=== PATIENT | male | born 1930 | race Two or more races ===

== ENCOUNTER 2018-09-02 13:37 | Emergency (ER) | payer BC, MEDICARE ==
[~2018-09-02] VITALS: Ht 165.1 cm; Wt 90.7 kg
[~2018-09-02 13:37] MED LIST: ACTOS30 MG ORAL; ASPIR-LOW81 MG ORAL; ATORVASTATIN; ATORVASTATIN CA10 MG ORAL; CASCARA SAGRAD450 MG PO; CELERY SEED OI500 ML MC; CINNAMON500 MG PO; CLONIDINE HCL0.2 MG PO; CLOPIDOGREL; CLOPIDOGREL75 MG PO; COZAAR25 MG ORAL; COZAAR50 MG PO; CRANBERRY500 M2 PO; FISH OIL500 MG PO; FLOMAX0.4 MG ORAL; GABAPENTIN; GABAPENTIN600 MG ORAL; GARLIC1 EACH PO; GLUCOPHAGE1000 MG PO; GLUCOVANCE 2.51 EACH PO; GLYBURIDE-METF1 EACH PO; JANUVIA; JANUVIA50 MG ORAL; LASIX; LASIX20 M1 PO; LOSARTAN; METFORMIN; METFORMIN HCL1000 M1 ORAL; NAPROXEN375 M2 PO; NATURAL LUTEIN20 MG PO; NEURONTIN100 MG ORAL; PAPAYA ENZYME1 EAC1 PO; SAW PALMETTO80 M1 PO; TAMSULOSIN; VITAMIN D400 INTLU PO
[2018-09-02] MEDS ORDERED: CLINDAMYCIN HC300 MG ORAL (14:41)
[2018-09-02] MEDS ORDERED: ACETAMINOPHEN-1 EAC1 ORAL (14:41)
[2018-09-02 14:44] VITALS: BP 150/87
--- NOTE | 2018-09-02 14:44 | NUR ---
ED Nurse Note: Pt was seen due to left second toe swelling. Pt cleared by health care provider for discharge. DC instructions/prescription was given and explained to pt and verbalized understanding of teachings. All bio medical technician such as ID band removed. Pt is AAO x4, ambulatory and left with all personal belongings. Pt left with his family member.
[2018-09-02] MEDS ORDERED: Clindamycin 150mg cap ORAL ONE (14:45)
--- NOTE | 2018-09-02 16:23 | Emergency Room Report ---
History of Present Illness General Chief Complaint: Lower Extremity Injury Source: Patient Present Illness HPI Patient is an 88 old male with a history of diabetes presenting for left toe swelling. Has began 3 days prior without known cause. He denies any known injury. He did notice a small cuts on the toe but is unsure how it happened. Pain is minor described as a 5 out of 10 dull ache. Does not radiate. He does admit to some numbness but states that this is a chronic issue. He denies any other symptoms including fever, chills, rash, calf pain, SOB, night sweats. he denies Hx of gout Allergies: Coded Allergies: No Known Allergies (Unverified , 10/21/12) Patient History Past Medical History: see triage record Pertinent Family History: none Reviewed Nursing Documentation: PMH: Agreed; PSxH: Agreed Nursing Documentation-PMH Past Medical History: No History, Except For Hx Cardiac Problems: Yes Hx Hypertension: Yes Hx Pacemaker: Yes Hx Diabetes: Yes Hx Cancer: No Hx Gastrointestinal Problems: Yes Hx Neurological Problems: Yes Hx Dizziness: Yes Hx Syncope: Yes Hx Weakness: Yes Hx Fatigue: Yes Review of Systems All Other Systems: negative except mentioned in HPI Physical Exam Vital Signs Date Time Temp Pulse Resp B/P (MAP) Pulse Ox O2 Delivery O2 Flow Rate FiO2 09/02/18 13:50 98.2 79 17 162/90 96 Room Air Sp02 EP Interpretation: reviewed, normal General Appearance: no apparent distress, alert, GCS 15, non-toxic Musculoskeletal: back normal, gait/station normal, normal range of motion, no calf tenderness, swelling - L 1st and 2nd digits, tender - L 1st and second digits Neurologic: alert, oriented x3, responsive, motor strength/tone normal, sensory intact, speech normal Skin: normal color, no rash, warm/dry, abrasions - dorsal aspect of L 1st toe Medical Decision Making PA Attestation Dr. Marino is my supervising physician. Patient management was discussed with my supervising physician Diagnostic Impression: Primary Impression: Cellulitis Qualified Codes: L03.039 - Cellulitis of unspecified toe ER Course Patient is an 88 old male with a history of diabetes presenting for left toe swelling. Differential diagnosis considered but not limited to: Cellulitis, gout, abscess , gangrene, fracture, sprain, among others Physical exam: Afebrile. No apparent distress There is a less than 1 cm abrasion to the left first toe, dorsal aspect. There is mild tenderness to palpation with swelling. No erythema. No discharge. Sensation is intact. X-ray of the left foot unremarkable for acute findings Patient is given prescription for antibiotics and pain medication. He is told he needs to follow-up with primary doctor within the next 2 days. He and his son agree. ER precautions given including if the patient develops fever, redness, swelling, or increased pain Other X-Ray Diagnostic Results Other X-Ray Diagnostic Results : # of Views/Limited Vs Complete: 3 View, Complete Indication: Pain EP Interpretation: Yes PA Xray: Interpretation reviewed, by supervising MD, and agrees with findings. Interpretation: no dislocation, no fractures, other - swelling Impression: Other - no bony changes Last Vital Signs Date Time Temp Pulse Resp B/P (MAP) Pulse Ox O2 Delivery O2 Flow Rate FiO2 09/02/18 14:44 98.0 86 18 150/87 98 Room Air Status: improved Disposition: HOME, SELF-CARE Condition: Improved Scripts Acetaminophen With Codeine (T#3) (TYLENOL #3 TAB*) Y Tab 1 TAB ORAL Q6HR PRN for For Pain, #10 TAB Prov: TAMI BHATIA P.A. 09/02/18 Clindamycin Hcl (CLINDAMYCIN HCL) 300 Mg Capsule 300 MG ORAL TID, #21 CAP Prov: TAMI BHATIA P.A. 09/02/18 Referrals: Tomás Eason MD (PCP) Patient Instructions: Cellulitis Additional Instructions: Please follow-up with your primary doctor within 2 days. You are at a higher risk for complications due to diabetes. Please return to the emergency department as soon as possible if you notice redness, increased swelling, increased pain, fever, chills, or any other symptoms. Please take the medications as prescribed TMAI BHATIA.A. Sep 02, 2018 16:23
--- NOTE | 2018-09-03 11:35 | Diagnostic Imaging Report ---
Indication: Foot pain Technique: 3 views left foot Comparison: none Findings: No acute fractures. No dislocations. There is degenerative narrowing of the second proximal interphalangeal joint. No definite osseous erosions. There are vascular calcifications. There are small plantar and calcaneal spurs. There is hammertoe deformity of the second through fifth digits. Impression: No definite acute process.
== END 2018-09-02 14:44 | disposition home or self-care (01) ==
LOC: EMR 14:24
DX: L03.032 Cellulitis of left toe (principal); S90.412A Abrasion, left great toe, initial encounter; X58.XXXA Exposure to other specified factors, initial encounter; Y92.9 Unspecified place or not applicable; I10 Essential (primary) hypertension; E11.9 Type 2 diabetes mellitus without complications; Z95.0 Presence of cardiac pacemaker
CPT/HCPCS: 82962; 99283

== ENCOUNTER 2019-02-21 15:24 | Emergency (ER) | payer BC, MEDICARE ==
[~2019-02-21] VITALS: Ht 162.6 cm; Wt 72.6 kg
[~2019-02-21 15:24] MED LIST changes: +ACETAMINOPHEN-1 EAC1 ORAL; +CLINDAMYCIN HC300 MG ORAL
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
--- NOTE | 2019-02-21 15:40 | NUR ---
ED Nurse Note: Pt BIBA from home due to "not being like himself normally, does not respond to questions appropriately, also R sided facial drooping and R sided limping x 1 hour prior to arrival". Upon arrival, pt follows commands but not answering the questions, generalized weakness noted. Vital signs stable at this time. Daughter at bedside. Will cont to monitor.
[2019-02-21] MEDS ORDERED: Isovue-370 150ml vial INJ PRN ×2 (15:45)
--- NOTE | 2019-02-21 15:52 | Emergency Room Report ---
History of Present Illness General Chief Complaint: Altered Mental Status Source: Patient, EMS Present Illness HPI 88-year-old male past history of atrial fibrillation, stents, hypertension, hyperlipidemia, diabetes, on anticoagulation, pacemaker presents with a lapse in consciousness, patient 30 mmins prior to arrival was noted to have some facial droop, left arm weakness left lower extremity weakness that has since resolved, patient can't remember exactly what happened, he denies any cp sob. He states he is at baseline. Allergies: Coded Allergies: No Known Allergies (Unverified , 10/21/12) Patient History Past Medical History: see triage record Reviewed Nursing Documentation: PMH: Agreed; PSxH: Agreed Nursing Documentation-PMH Past Medical History: No History, Except For Hx Cardiac Problems: Yes Hx Hypertension: Yes Hx Pacemaker: Yes Hx Diabetes: Yes Hx Cancer: No Hx Gastrointestinal Problems: Yes Hx Neurological Problems: Yes Hx Dizziness: Yes Hx Syncope: Yes Hx Weakness: Yes Hx Fatigue: Yes Review of Systems All Other Systems: negative except mentioned in HPI Physical Exam Vital Signs Date Time Temp Pulse Resp B/P (MAP) Pulse Ox O2 Delivery O2 Flow Rate FiO2 02/21/19 15:30 98.1 60 19 131/68 (89) 94 Room Air Sp02 EP Interpretation: reviewed, normal General Appearance: well appearing, no apparent distress, alert Head: normocephalic, atraumatic Eyes: bilateral eye PERRL, bilateral eye EOMI ENT: uvula midline, moist mucus membranes Neck: supple, thyroid normal, supple/symm/no masses Respiratory: lungs clear, no respiratory distress, no retraction, no accessory muscle use Cardiovascular #1: normal peripheral pulses, regular rate, rhythm, no edema, no gallop, no murmur Gastrointestinal: non tender, soft, no guarding, no rebound Musculoskeletal: normal inspection Neurologic: alert, oriented x3 Psychiatric: mood/affect normal Skin: no rash, warm/dry Procedures Critical Care Time Critical Care Time Given the critical condition in which the patient arrived, the patient was immediately assessed by myself and the nurse, and cardiac monitoring initiated due to the potential for rapid decompensation of the patient's clinical condition. During the course of the patient's stay, I spent a considerable amount of time at the bedside performing serial re-evaluations of the patient's hemodynamic and clinical status because of the recognized potential threat to life or limb in this condition. I then had a chance to review not only all of the available current laboratory and radiographic studies obtained today, but I also reviewed old records available to me at the time. Additionally, any ancillary information available including photograph developer records were reviewed. Sequential vital signs were obtained. Critical Care time of 42 minutes was performed exclusive of billable procedures. Medical Decision Making Diagnostic Impression: Primary Impression: TIA (transient ischemic attack) Additional Impression: Altered mental status Qualified Codes: R41.82 - Altered mental status, unspecified ER Course 88-year-old male presents with altered mental status treatments prior to arrival , patient is at baseline, no acute neurologic deficits noted, concern for possible TIA versus sepsis versus UTI versus CVA Patient is on anticoagulation Will transfer patient to [facility] accepting physician is DR MILLER [phone]. Patient accepted at 5:50 PM Reevaluation 6:37 PM, patient remained stable, counseling provided to family requesting paperwork for the type of pacemaker he has in order to do an MRI at the outside hospital Reevaluation at 8:03 PM, patient was about to leave AMA, counseled patient to stay states he will for a stroke work-up Currently awaiting CT results Laboratory Tests Test 02/21/19 15:43 02/21/19 16:06 02/21/19 16:30 White Blood Count 9.4 K/UL (4.8-10.8) Red Blood Count 4.06 M/UL (4.70-6.10) L Hemoglobin 12.7 G/DL (14.2-18.0) L Hematocrit 36.5 % (42.0-52.0) L Mean Corpuscular Volume 90 FL (80-99) Mean Corpuscular Hemoglobin 31.2 PG (27.0-31.0) H Mean Corpuscular Hemoglobin Concent 34.8 G/DL (32.0-36.0) Red Cell Distribution Width 11.6 % (11.6-14.8) Platelet Count 186 K/UL (150-450) Mean Platelet Volume 7.2 FL (6.5-10.1) Neutrophils (%) (Auto) 61.2 % (45.0-75.0) Lymphocytes (%) (Auto) 26.8 % (20.0-45.0) Monocytes (%) (Auto) 9.3 % (1.0-10.0) Eosinophils (%) (Auto) 1.3 % (0.0-3.0) Basophils (%) (Auto) 1.3 % (0.0-2.0) Prothrombin Time 14.9 SEC (9.30-11.50) H Prothrombin Time INR 1.4 (0.9-1.1) H PTT 36 SEC (23-33) H Sodium Level 136 MMOL/L (136-145) Potassium Level 4.0 MMOL/L (3.5-5.1) Chloride Level 103 MMOL/L (98-107) Carbon Dioxide Level 27 MMOL/L (21-32) Anion Gap 6 mmol/L (5-15) Blood Urea Nitrogen 16 mg/dL (7-18) Creatinine 1.2 MG/DL (0.55-1.30) Estimate Glomerular Filtration Rate mL/min (>60) Glucose Level 325 MG/DL (74-106) H Calcium Level 8.8 MG/DL (8.5-10.1) Phosphorus Level 2.9 MG/DL (2.5-4.9) Magnesium Level 1.9 MG/DL (1.8-2.4) Total Bilirubin 0.6 MG/DL (0.2-1.0) Aspartate Amino Transferase (AST) 13 U/L (15-37) L Alanine Aminotransferase (ALT) 10 U/L (12-78) L Alkaline Phosphatase 96 U/L (46-116) Total Creatine Kinase 75 U/L (26-308) Creatine Kinase MB 1.4 NG/ML (0.0-3.6) Creatine Kinase MB Relative Index 1.8 Troponin I 0.020 ng/mL (0.000-0.056) Pro-B-Type Natriuretic Peptide 176 pg/mL (0-125) H Total Protein 6.4 G/DL (6.4-8.2) Albumin 3.2 G/DL (3.4-5.0) L Globulin 3.2 g/dL Albumin/Globulin Ratio 1.0 (1.0-2.7) Lipase 194 U/L (73-393) Lactic Acid Level 1.50 mmol/L (0.4-2.0) Urine Color Pale yellow Urine Appearance Clear Urine pH 7 (4.5-8.0) Urine Specific [place] 1.010 (1.005-1.035) Urine Protein Negative (NEGATIVE) Urine Glucose (UA) 4+ (NEGATIVE) H Urine Ketones Negative (NEGATIVE) Urine Blood Negative (NEGATIVE) Urine Nitrite Negative (NEGATIVE) Urine Bilirubin Negative (NEGATIVE) Urine Urobilinogen 1 MG/DL (0.0-1.0) H Urine Leukocyte Esterase 2+ (NEGATIVE) H Urine RBC 0-2 /HPF (0 - 0) H Urine WBC 10-15 /HPF (0 - 0) H Urine Squamous Epithelial Cells None /LPF (NONE/OCC) Urine Bacteria Occasional /HPF (NONE) EKG Diagnostic Results EKG Time: 15:42 EP Interpretation: NSR, left axis deviation, left bundle branch block, rate 63 , QTc 468, Rate: normal Rhythm: NSR ST Segments: no acute changes Rhythm Strip Diag. Results Rhythm Strip Time: 15:51 EP Interpretation: yes Rate: 60 Rhythm: NSR, no PVC's, no ectopy Chest X-Ray Diagnostic Results Chest X-Ray Diagnostic Results : Chest X-Ray Ordered: Yes # of Views/Limited/Complete: 1 View Indication: Other - AMS EP Interpretation: Yes Interpretation: no consolidation, no effusion, no pneumothorax, no acute cardiopulmonary disease Impression: No acute disease Electronically Signed by: Austyn Sorensen MD CT/MRI/US Diagnostic Results CT/MRI/US Diagnostic Results : Impression Preliminary Findings Only See Final Report For Complete Findings CTA NECK W/WO Contrast: CT Angiogram of the Neck FINDINGS: The aortic arch and proximal great vessels are unremarkable. The bilateral common, internal and external carotid arteries are within normal limits as are the vertebral arteries. Visualized portions of the lung apices are clear. Soft tissues and osseous structures are unremarkable. IMPRESSION: No evidence of dissection or high grade stenosis. Radiologist: Harlan Joseph MD Study ready at 19:01 and initial results transmitted at 19:08 Preliminary Findings Only See Final Report For Complete Findings CTA HEAD W/WO Contrast: No arterial occlusion, high-grade stenosis, aneurysm, or dissection. Radiologist: Guille Nieto MD Study ready at 18:43 and initial results transmitted at 18:52 Last Vital Signs Date Time Temp Pulse Resp B/P (MAP) Pulse Ox O2 Delivery O2 Flow Rate FiO2 02/21/19 15:30 98.1 60 19 131/68 (89) 94 Room Air Disposition: XFER [facility] - [facility] [place] Condition: Stable Austyn Sorensen MD Feb 21, 2019 15:52
[2019-02-21 16:12] LABS: BASOPHILS % (AUTO) 1.3 % (0.0-2.0); EOSINOPHILS % (AUTO) 1.3 % (0.0-3.0); HEMATOCRIT 36.5 % (42.0-52.0); HEMOGLOBIN 12.7 G/DL (14.2-18.0); LYMPHOCYTES % (AUTO) 26.8 % (20.0-45.0); MEAN CORPUSCULAR VOLUME 90 FL (80-99); MONOCYTES % (AUTO) 9.3 % (1.0-10.0); NEUTROPHILS % (AUTO) 61.2 % (45.0-75.0); PLATELET COUNT 186 K/UL (150-450); RED BLOOD COUNT 4.06 M/UL (4.70-6.10); RED CELL DISTRIBUTION WIDTH 11.6 % (11.6-14.8); WHITE BLOOD COUNT 9.4 K/UL (4.8-10.8)
[2019-02-21 16:33] VITALS: BP 132/72
[2019-02-21 16:36] LABS: ANION GAP 6 mmol/L (5-15); BLOOD UREA NITROGEN 16 mg/dL (7-18); CALCIUM 8.8 MG/DL (8.5-10.1); CARBON DIOXIDE 27 MMOL/L (21-32); CHLORIDE 103 MMOL/L (98-107); CREATININE 1.2 MG/DL (0.55-1.30); SODIUM 136 MMOL/L (136-145)
--- NOTE | 2019-02-21 16:40 | Diagnostic Imaging Report ---
Indication: Shortness of breath Technique: One view of the chest Comparison: 06/23/2016 Findings: Less optimal inspiration currently. The heart size is normal. Lungs and pleural spaces remain clear. There is a left chest pacemaker again noted. No significant change Impression: No acute process
[2019-02-21 16:47] LABS: INR 1.4 (0.9-1.1)
[2019-02-21 16:48] LABS: APPEARANCE,URINE CLEAR; BILIRUBIN, URINE NEGATIVE (NEGATIVE); COLOR,URINE PALE YELLOW; GLUCOSE, URINE (UA) 4+ (NEGATIVE); KETONES,URINE NEGATIVE (NEGATIVE); LEUKOCYTE ESTERASE ,URINE 2+ (NEGATIVE); NITRITE,URINE NEGATIVE (NEGATIVE); PH,URINE 7 (4.5-8.0); PROTEIN,URINE NEGATIVE (NEGATIVE); UROBILINOGEN,URINE 1 MG/DL (0.0-1.0)
[2019-02-21 16:52] LABS: ALANINE AMINOTRANSFERASE 10 U/L (12-78); ALBUMIN 3.2 G/DL (3.4-5.0); ALKALINE PHOSPHATASE 96 U/L (46-116); ASPARTATE AMINO TRANSFERASE 13 U/L (15-37); BILIRUBIN,TOTAL 0.6 MG/DL (0.2-1.0); CKMB 1.4 NG/ML (0.0-3.6); CREATINE KINASE 75 U/L (26-308); PHOSPHORUS 2.9 MG/DL (2.5-4.9)
[2019-02-21] MEDS ORDERED: VITAMIN D400 INTLU ORAL (16:53)
[2019-02-21] MEDS ORDERED: XARELTO20 MG ORAL (16:53)
--- NOTE | 2019-02-21 17:30 | NUR ---
ED Nurse Note: Pt is awake and alert, cooperative at this time but still does not answer questions. No sign of acute distress.
[2019-02-21 18:29] VITALS: BP 143/68
[2019-02-21] MEDS ORDERED: Nitroglycerin Subl 0.4mg tab SL PRN (18:30)
[2019-02-21] MEDS ORDERED: Miralax 17gm pkt ORAL PRN (18:30)
[2019-02-21] MEDS ORDERED: Albuterol/Ipratropium 3ml neb HHN PRN (18:30)
[2019-02-21] MEDS ORDERED: Promethazine/Codeine 5ml UD ORAL PRN (18:30)
--- NOTE | 2019-02-21 18:54 | Diagnostic Imaging Report ---
Indication: A 8-year-old male with history of atrial fibrillation and stents, now presenting with lapse in consciousness, facial droop, left arm weakness, left lower extremity weakness Technique: Precontrast spiral acquisitions obtained through the brain. IV administration nonionic contrast. Arterial phase spiral acquisitions obtained through the brain Multiplanar and 3-D reconstructions were generated. Total dose length product 2470 mGycm. CTDIvol(s) 16, 16, 181, 57 mGy. Radiation dose was minimized using automated exposure control Comparison: Precontrast study compared to head CT of 01/09/2013. No comparison angiographic images Findings: Precontrast images demonstrate age-related enlargement of the ventricles and extra axial CSF spaces. There is mild periventricular deep white matter low-attenuation consistent with chronic microvascular ischemic change. Normal baker-white differentiation. No acute intracranial hemorrhage or edema, mass effect, nor midline shift. Angiographic images demonstrate dominant right, smaller caliber left vertebral artery demonstrated, both without significant focal stenosis. Patent PICAs. Patent nonstenotic basilar artery. Small caliber of the patent anterior inferior cerebellar arteries. Patent bilateral superior cerebellar arteries. Small caliber left P1 segment with a large posterior communicating artery. Patent nonstenotic P2 and proximal branches. Absent P1 segment with origin of the right posterior cerebral artery off of the distal internal carotid artery, patent and nonstenotic. Atherosclerotic calcified plaquing results in borderline narrowing of the proximal right carotid siphon, probably not significant. The remainder of the distal internal carotid artery is patent without significant stenosis. Patent M1 segment and proximal branches. There is absence of the A1 segment. Patent and nonstenotic distal right internal carotid artery. Patent right A1 segment which supplies both anterior cerebral arteries. Patent nonstenotic M1 segment and proximal branches. Unremarkable veins and venous sinuses. No evidence of aneurysm or vascular malformation. Impression: No evidence of significant intracranial cerebrovascular insufficiency [place] anatomy as described Age-related cerebral volume loss and mild periventricular deep white matter chronic ischemic changes. No acute intracranial bleed or mass effect This agrees with the preliminary interpretation provided overnight by [employer] telerad[facility] service. The CT scanner at [facility] is accredited by the [employer] and the scans are performed using protocols designed to limit radiation exposure to as low as reasonably achievable to attain images of sufficient resolution adequate for diagnostic evaluation.
--- NOTE | 2019-02-21 19:02 | NUR ---
ED Nurse Note: Receiving RN at [facility] is not ready to take report at this time, will call back in 15 mins.
--- NOTE | 2019-02-21 19:09 | Diagnostic Imaging Report ---
Indication: Altered level of consciousness, left arm weakness, left lower extremity weakness, facial droop Technique: IV administration nonionic contrast. Arterial phase spiral acquisitions obtained through the neck Multiplanar and 3-D reconstructions were generated. Total dose length product 2470 mGycm. CTDIvol(s) 16, 16, 181, 57 mGy. Radiation dose was minimized using automated exposure control Comparison: none Findings: Unremarkable aortic arch. There is common origin of the right brachiocephalic and left common carotid arteries-normal anatomic variant. Right brachiocephalic artery is patent, nonstenotic. There is slight narrowing of the common carotid origin which is probably due to kinking from tortuosity. There is as described plaquing at the aortic bifurcation, but no significant focal narrowing demonstrated. The distal internal carotid artery is quite tortuous. There is suggestion of an area of nonspecific diffuse stenosis in the proximal carotid siphon.. Calcified atherosclerotic plaque occludes accurate estimate of degree of stenosis but probably less than 50%. Patent proximal ophthalmic artery. Patent and nonstenotic right proximal subclavian artery. Patent nonstenotic right vertebral artery. The right vertebral artery is dominant. There is separate origin of the left vertebral artery off of the aortic arch. It is diffusely small in caliber without definite significant focal stenosis Patent and nonstenotic left common carotid artery. There is calcified athetotic plaquing of the carotid bifurcation but no significant focal stenosis. Distal internal carotid artery is patent and nonstenotic. There is evidence of prior bilateral cataract surgery. No cervical mass or adenopathy demonstrated. The upper aerodigestive tract is unremarkable. The included upper lungs are clear. The included upper mediastinum is unremarkable. There is a pacemaker. Impression: No evidence of significant extracranial cerebrovascular insufficiency. Findings as noted This agrees with the preliminary interpretation provided overnight by [employer] telerad[facility] service. The CT scanner at [facility] is accredited by the [employer] and the scans are performed using protocols designed to limit radiation exposure to as low as reasonably achievable to attain images of sufficient resolution adequate for diagnostic evaluation.
--- NOTE | 2019-02-21 19:38 | NUR ---
ED Nurse Note: Report called in to Telma MCCONNELL at [facility]. Patient awaiting transport with daughter at his bed side.
--- NOTE | 2019-02-21 20:03 | NUR ---
ED Nurse Note: Patient expressed want to be discharged, ERMD informed and at bedside consulting with patient.
[2019-02-21] MEDS ORDERED: NovoLOG Insulin Flexpen SUBQ SCH (21:00)
[2019-02-21] MEDS ORDERED: Heparin 5000 units/ml inj SUBQ SCH (21:00)
--- NOTE | 2019-02-21 21:00 | NUR ---
ED Nurse Note: Patient able to void with assistance at bedside.
[2019-02-21 21:56] VITALS: BP 143/68
--- NOTE | 2019-02-21 21:56 | NUR ---
ED Nurse Note: Patient ready for transfer to [facility]. Report given to ALS transport. Vital signs stable. Patient will be accompanied by his daughter. Report called into Telma MCCONNELL prior to pharmacy picking tech. Patient awake, alert and oriented x 4.
[2019-02-22] MEDS ORDERED: Aspirin EC 81mg tab ORAL SCH (09:00)
[2019-02-22] MEDS ORDERED: Losartan 50mg tab ORAL SCH (09:00)
[2019-02-22] MEDS ORDERED: Tamsulosin 0.4mg cap ORAL SCH (09:00)
[2019-02-22] MEDS ORDERED: cloNIDine 0.2mg Tab ORAL SCH (09:00)
--- NOTE | 2019-02-24 13:09 | Cardiology Report ---
APPROVED REPORT EKG Measurement Heart [id number] IL [id number] Sinus rhythm with 1st degree AV block Left axis deviation Left bundle branch block Abnormal ECG
== END 2019-02-21 22:00 | disposition short-term general hospital (02) ==
LOC: EDBD 15:24 → EMR 16:25
DX: G45.9 Transient cerebral ischemic attack, unspecified (principal); I10 Essential (primary) hypertension; E11.9 Type 2 diabetes mellitus without complications; Z95.0 Presence of cardiac pacemaker; I48.91 Unspecified atrial fibrillation; Z95.5 Presence of coronary angioplasty implant and graft; E78.5 Hyperlipidemia, unspecified; I44.7 Left bundle-branch block, unspecified; R06.02 Shortness of breath
CPT/HCPCS: 36415; 70496; 70498; 71045; 80053; 81003; 82550; 82553; 83605; 83690; 83735; 83880; 84100; 84484; 85025; 85610; 85730; 86850; 86900; 86901; 87040; 87086; 93005; 96360; 99291; Q9967